=== PATIENT | female | born 1995 | race Caucasian/White ===

== ENCOUNTER → 2018-08-23 15:36 | Outpatient (CLI) | payer BC, SELFPAY ==
[2018-08-23 20:25] LABS: Urine N gonorrhoeae NOT DETECTED
[2018-08-23 20:33] LABS: Urine Chlamydia NOT DETECTED
== END ==
PROVIDERS: PCP Nurse Practitioner Family; Visit Provider Obstetrics & Gynecology
DX: Z34.01 Encounter for supervision of normal first pregnancy, first trimester (principal)
CPT/HCPCS: 87491; 87591

== ENCOUNTER → 2018-09-14 14:59 | Outpatient (CLI) | payer BC, SELFPAY ==
[2018-09-14 17:33] LABS: Free T4, Direct Thyroxine 0.85 ng/dL (0.78-2.19)
[2018-09-14 17:47] LABS: Thyroid Stimulating Hormone 1.93 uIU/mL (0.47-4.68)
[2018-09-20 09:20] LABS: AFP, Serum 34.3 ng/mL; Calc Gestational Age 17.4; Maternal Weight 274 lbs; Mother Ethnic Origin NOT GIVEN; Number of Fetuses NOT GIVEN; Prev Pregnancies Down Syndrome NOT GIVEN
== END ==
PROVIDERS: PCP Nurse Practitioner Family; Visit Provider Obstetrics & Gynecology
DX: E03.9 Hypothyroidism, unspecified (principal); Z3A.17 17 weeks gestation of pregnancy
CPT/HCPCS: 36415; 82105; 84439; 84443; 86787

== ENCOUNTER → 2018-10-11 07:06 | Outpatient (CLI) | payer BC, SELFPAY ==
--- NOTE | 2018-10-11 07:07 | DI.US.S_ITS ---
PROCEDURE: US OB >= 14 WEEKS FETUS INDICATIONS: ANATOMY OUTSIDE/PRIOR DATING DATA: Last menstrual period (LMP): 05/22/18. LMP-based estimated date of delivery (WOODROW): 02/26/19. First dating scan (date and location): 08/23/18. Estimated date of delivery (WOODROW) from first dating scan: 02/21/19. TECHNIQUE: Real-time scanning was performed of the fetus, with image documentation and biometric measurements. Endovaginal scanning: No COMPARISON: [facility], , OB >= 14 WEEKS FETUS, 09/14/2018, 14:50. FINDINGS: General: A single living intrauterine gestation is present. Presentation: Breech. Placenta: Placental position is anterior, without previa. Amniotic fluid index: 18.0 cm, normal range is 5-24 cm. heart rate: 152 beats per minute. Maternal cervical canal: 3.3 cm long. Normal lower limit is 2.5 cm. biometrics: Biparietal diameter: 22 weeks 3 days Head circumference: 22 weeks 3 days Abdominal circumference: 21 weeks 4 days Femur length: 20 weeks Estimated gestational age from initial scan: 21 weeks Composite gestational age from present scan: 21 weeks 4 days Estimated weight and percentile: 398 g; 49th percentile Measurement variability for biometric dating: +/- 7 days from 14 weeks to 15 weeks 6 days gestation, +/- 10 days from 16 weeks to 21 weeks 6 days gestation, +/- 2 weeks from 22 weeks to 27 weeks 6 days gestation, +/- 3 weeks for 28 weeks gestation or later. weight reference: 4500 g or EFW >90/95% is considered macrosomia or large for gestational age. EFW <10% is small for gestational age. EFW 5% or less is considered intra-uterine growth restriction. Anatomic survey: Neuro: Ventricles are non-dilated at less than 10 mm. Cisterna magna is normal at 3-11 mm. Cerebellum is normal in size and morphology. Nuchal skin fold: Normal at less than 6 mm between 14-21 weeks gestational age. Face: Not well visualized. Spine: No evidence for spina bifida. Heart: 4-chambered heart is present, with normal ventricular outflow tracts. Diaphragm: Diaphragm is intact. Stomach: Left-sided stomach is present. Kidneys: No hydronephrosis. Normal is less than 5 mm in 2nd trimester, less than 7 mm in 3rd trimester. Cord: 3-vessel cord has orthotopic insertion. Bladder: Normal in size. Extremities: All 4 extremities identified. IMPRESSION: 1. Single living IUP redemonstrated and interval growth is normal. 2. face not well seen; otherwise normal anatomic survey. Followup recommended.. Dictated by: Deep PEDRAZA Interpreted: Annie Maravilla MD on 10/11/2018 at 11:26 Approved by: Annie Maravilla MD, PhD on 10/11/2018 at 13:11
== END ==
PROVIDERS: PCP Nurse Practitioner Family; Visit Provider Obstetrics & Gynecology
DX: Z34.82 Encounter for supervision of other normal pregnancy, second trimester (principal); Z3A.21 21 weeks gestation of pregnancy
CPT/HCPCS: 76811

== ENCOUNTER → 2018-11-08 14:48 | Outpatient (CLI) | payer BC, SELFPAY ==
[2018-11-08 17:31] LABS: Hematocrit 37.3 % (36-46); Hemoglobin 12.4 g/dL (12.0-16.0)
[2018-11-08 17:43] LABS: GTT (PREG) 1 Hour PP 50gm Dose 82 mg/dL (76-139)
[2018-11-09 09:42] LABS: Free T4, Direct Thyroxine 0.85 ng/dL (0.78-2.19)
== END ==
PROVIDERS: PCP Nurse Practitioner Family; Visit Provider Obstetrics & Gynecology
DX: Z34.02 Encounter for supervision of normal first pregnancy, second trimester (principal); E03.9 Hypothyroidism, unspecified
CPT/HCPCS: 36415; 82950; 84439; 84443; 85014; 85018

== ENCOUNTER 2019-01-03 12:00 | Outpatient (CLI) | payer BC, SELFPAY ==
--- NOTE | 2019-01-03 13:11 | PM.OBTRLD ---
Visit Information Visit Information Date of evaluation: 01/03/19 Primary OB Provider: Domenica Rodriguez On-call OB Provider: Adela West Reason for Evaluation: Yes rupture of membranes Vital Signs Vital Signs: Blood pressure 100/57 pulse of 70 PFSH Social History Smoking Status: Former smoker Social History Smoking Status: Former smoker Evaluation Evaluation Baseline heart rate: 120 Variability: Moderate (11-25) monitor accelerations: Present monitor decelerations: Absent Contraction Frequency (minutes): 0 Category of Tracing: I Non-invasive Membranes Rupture Test: negative Diagnosis, Plan/Disposition Final Diagnosis (1) 33 weeks gestation of : Current Visit: Yes Status: Acute (2) Premature uterine contractions, antepartum: Current Visit: Yes Status: Acute Problem details: Patient concerned she may have had rupture membranes but AmniSure was negative patient was discharged Plan/Disposition Plan: Home keep routine OB appointment OB Disposition: home
== END 2019-01-03 13:21 | disposition home or self-care (01) ==
LOC: LABOR 12:16 → OB 01-09 08:10
PROVIDERS: PCP Nurse Practitioner Family; Visit Provider Obstetrics & Gynecology
DX: O47.00 False labor before 37 completed weeks of gestation, unspecified trimester (principal); Z3A.33 33 weeks gestation of pregnancy
CPT/HCPCS: 59025; 84112; G0378; G0379

== ENCOUNTER → 2019-01-10 15:56 | Outpatient (CLI) | payer BC, SELFPAY ==
--- NOTE | 2019-01-10 17:11 | PM.OBTRLD ---
Visit Information Visit Information Date of evaluation: 01/10/19 Primary OB Provider: Domenica Rodriguez On-call OB Provider: Adela West Reason for Evaluation: Yes rupture of membranes Vital Signs Vital Signs: Blood pressure 119/67, pulse 76 PFSH Social History Smoking Status: Former smoker Social History Smoking Status: Former smoker Evaluation Evaluation Baseline heart rate: 130 Variability: Moderate (11-25) monitor accelerations: Present monitor decelerations: Absent Contraction Frequency (minutes): 0 Category of Tracing: I Non-invasive Membranes Rupture Test: negative Diagnosis, Plan/Disposition Final Diagnosis (1) Premature uterine contractions, antepartum: Current Visit: No Status: Acute Problem details: Patient concerned she may have had rupture membranes but AmniSure was negative patient was discharged (2) 34 weeks gestation of : Current Visit: Yes Status: Acute Plan/Disposition Plan: Patient discharged home to return if she has further concerns keep her routine OB appointment OB Disposition: home
[2019-01-10 17:13] LABS: Thyroid Stimulating Hormone 1.25 uIU/mL (0.47-4.68)
[2019-01-10 19:28] LABS: Free T4, Direct Thyroxine 0.75 ng/dL (0.78-2.19)
== END ==
LOC: LAB 15:57 → LABOR 17:57 → OB 01-11 15:28
PROVIDERS: PCP Nurse Practitioner Family; Visit Provider Obstetrics & Gynecology
DX: O47.00 False labor before 37 completed weeks of gestation, unspecified trimester (principal); Z3A.34 34 weeks gestation of pregnancy
CPT/HCPCS: 36415; 59025; 84112; 84439; 84443; G0378

== ENCOUNTER → 2019-01-24 11:54 | Outpatient (CLI) | payer BC, SELFPAY ==
[2019-01-25 12:55] LABS: Strep Grp B PCR NEG for Grp B Strep
== END ==
PROVIDERS: PCP Nurse Practitioner Family; Visit Provider Obstetrics & Gynecology
DX: Z34.83 Encounter for supervision of other normal pregnancy, third trimester (principal); Z36.85 Encounter for antenatal screening for Streptococcus B
CPT/HCPCS: 87653

== ENCOUNTER 2019-02-14 15:24 | Outpatient (CLI) | payer BC, SELFPAY | END 2019-02-14 17:51 | disposition home or self-care (01) | LOC: LABOR 16:27 → OB 02-15 10:45 | PROVIDERS: PCP Nurse Practitioner Family; Visit Provider Obstetrics & Gynecology | DX: O36.8130 Decreased fetal movements, third trimester, not applicable or unspecified (principal); Z3A.39 39 weeks gestation of pregnancy | CPT/HCPCS: 59025; 59050; G0378; G0379 ==

== ENCOUNTER → 2019-02-16 15:23 | Outpatient (CLI) | payer BC, SELFPAY ==
[2019-02-16 16:42] LABS: Free T4, Direct Thyroxine 0.68 ng/dL (0.78-2.19)
[2019-02-16 16:56] LABS: Thyroid Stimulating Hormone 1.82 uIU/mL (0.47-4.68)
== END ==
PROVIDERS: PCP Nurse Practitioner Family; Visit Provider Obstetrics & Gynecology
DX: E03.9 Hypothyroidism, unspecified (principal)
CPT/HCPCS: 36415; 84439; 84443

== ENCOUNTER 2019-02-19 21:23 | Inpatient (IN) | payer BC, SELFPAY ==
[2019-02-20 00:40] VITALS: TEMP 36.6
[2019-02-20] MEDS: fentaNYL 100 MCG/2 ML INJ IV (00:40)
[2019-02-20 01:33] LABS: Add Manual Diff / Slide Review NO; Basophils Absolute Auto 100 /uL (0-100); Basophils Percent Auto 0.4 % (0-2); Eosinophils Absolute Auto 0 /uL (0-450); Eosinophils Percent Auto 0.3 % (2-4); Hematocrit 40.5 % (36-46); Hemoglobin 13.8 g/dL (12.0-16.0); Lymphocytes Absolute Auto 2600 /uL (1100-4500); Lymphocytes Percent Auto 17.7 % (25-40); Mean Corpuscular HGB Conc 34.1 % (30-36); Mean Corpuscular Hemoglobin 31.2 PG (26-34); Mean Corpuscular Volume 91.4 fL (80-100); Monocytes Absolute Auto 800 /uL (0-900); Monocytes Percent Auto 5.3 % (3-14); Neutrophils Absolute Auto 11300 /uL (1500-7000); Neutrophils Percent Auto 76.3 % (50-75); Platelet Count 259 X10^3/uL (150-400); Red Blood Cell Count 4.43 X10^6/uL (4.0-5.2); Red Cell Distribution Width 13.7 % (11.6-14.8); White Blood Cell Count 14.8 X10^3/uL (4.5-11.0)
[2019-02-20] MEDS: LACTATED RINGERS 1,000 ML 100 ML IV (01:51)
[2019-02-20 01:56] VITALS: TEMP 36.6
--- NOTE | 2019-02-20 05:42 | PM.OBPRVD ---
Delivery date: 02/20/19 Intrapartal events: None Cervical ripening method: none Induction method: none Delivery monitor: external FHT and external uterine Route of delivery: Episiotomy description: None L&D Laceration Description: Vaginal - 2nd Degree and Superficial (right labial) Delivery repair: vicryl and chromic Estimated blood loss (mL): 300 Anesthesia type: Epidural Complications: None Narrative: Patient complete and pushed for 18 minutes. At 4:58 a.m., a live male infant delivered spontaneously over an intact perineum. No nuchal cord. The remainder of the body delivered without difficulty and was placed on mom's abdomen. The cord was double clamped and cut after it stopped pulsing. Cord bloods were obtained. The placenta delivered intact with a 3 vessel cord at 5:03 a.m.. Fundus was massaged to firm. 10 units of Pitocin were placed in the IV fluids. A second-degree vaginal laceration was repaired with 2 0 Vicryl in the usual fashion. A right superficial labial laceration was repaired with 4 0 chromic. Hemostasis was achieved. Estimated blood loss 300 cc. Apgars 8 at 1 minute and 9 at 5 minutes. Epidural analgesia. . Mom and stable to recovery. Plan for aftercare: To routine care
[2019-02-20] MEDS: PRENATAL VIT,CALC/IRON/FOLIC 1 TABLET 1 TAB PO (09:10)
[2019-02-20] MEDS: DOCUSATE 250 MG CAPSULE PO (09:10)
[2019-02-20] MEDS: IBUPROFEN 600 MG TABLET PO ×2 (09:11→18:22)
[2019-02-20] MEDS: CITALOPRAM 10 MG TABLET 30 MG PO (09:21)
[2019-02-20] MEDS: LEVOTHYROXINE 100 MCG TABLET PO (09:21)
--- NOTE | 2019-02-20 18:16 | P.DS_ITS ---
History of Present Illness Date Patient Seen: 02/20/19 Chief complaint: EVALUATION OF LABOR Discharge Providers Date of admission: 02/19/19 21:23 Primary care physician: NILS Mccarty Consults: 02/20/19 07:34 Consult to Ceramic Design Engineer Routine Comment: Discharge provider: Domenica Rodriguez MD Objective Labs Result Diagrams: 02/20/19 01:00 Labs: Laboratory Results - last 24 hr 02/20/19 02/20/19 01:00 01:00 WBC 14.8 H RBC 4.43 Hgb 13.8 Hct 40.5 MCV 91.4 MCH 31.2 MCHC 34.1 RDW 13.7 Plt Count 259 Neut % (Auto) 76.3 H Lymph % (Auto) 17.7 L [place] % (Auto) 5.3 Eos % (Auto) 0.3 L Baso % (Auto) 0.4 Neut # (Auto) 85969 H Lymph # (Auto) 2600 [place] # (Auto) 800 Eos # (Auto) 0 Baso # (Auto) 100 Blood Type B Positive Antibody Screen Negative Discharge Plan Discharge Med Rec/Prescriptions Prescriptions: No Action levothyroxine 100 mcg capsule 100 mcg PO DAILY Qty: 30 RF: 3 citalopram 40 mg tablet 30 mg PO DAILY RF: 0 folic acid 800 mcg tablet 0.4 mg PO DAILY RF: 0 prenat.vits,nadya,irw-bkzk-xyxkm tablet 1 tab PO DAILY RF: 0 Discharge Data Primary Care Provider: Yasmin Shah Attending Provider: Domenica Rodriguez Admit Date/Time: 02/19/19 21:23
--- NOTE | 2019-02-20 18:17 | PM.OBHP.1 ---
OB HPI Date/Time Date of admission: 02/20/19 Date Patient Seen: 02/20/19 Time Patient Seen: 04:00 History of Present Condition Chief complaint: EVALUATION OF LABOR : 1 Para: 0 Estimated Date of Delivery: 02/19/19 Estimated Gestational Age (weeks): 40+1 Narrative: Spring Chandra is a 23 year old female 1 para 0 at 40-,1/7 weeks gestation who presented in active labor History of Present care: good care, initiated at week # (13), number of visits (10) and pounds weight gain (20) Dating criteria: LMP confirmed by 1st trimester US Ultrasounds: normal 1st trimester US and normal mid trimester US Obstetrical complications: none Medical complications: none Preadmission Labs Blood type: B (+) positive -: Antibody screen: negative, GBS status: negative, HBsAG: negative and HIV: negative -: Chlamydia screen: not detected and Gonorrhea screen: not detected -: Rubella: immune and Varicella: immune HCT: 37.3 Urine: Mixed 1 hr GTT: 2 Evaluation Evaluation Baseline heart rate: 135 Variability: Moderate (11-25) monitor accelerations: Present monitor decelerations: Absent Contraction Frequency (minutes): 2 Uterine Contraction Intensity: Strong/Firm Category of Tracing: I Cervical dilation (cm): 10 Cervical effacement (%): 100 station: +1 Laboratory results: Laboratory Tests 02/20/19 02/20/19 01:00 01:00 WBC 14.8 H RBC 4.43 Hgb 13.8 Hct 40.5 MCV 91.4 MCH 31.2 MCHC 34.1 RDW 13.7 Plt Count 259 Neut % (Auto) 76.3 H Lymph % (Auto) 17.7 L [place] % (Auto) 5.3 Eos % (Auto) 0.3 L Baso % (Auto) 0.4 Neut # (Auto) 33373 H Lymph # (Auto) 2600 [place] # (Auto) 800 Eos # (Auto) 0 Baso # (Auto) 100 Blood Type B Positive Antibody Screen Negative Non-invasive Membranes Rupture Test: positive [facility] Medical History (Updated 02/20/19 @ 18:24 by Domenica Rodriguez MD) Hypothyroidism affecting (Acute) Social History Smoking Status: Former smoker Social History Smoking Status: Former smoker Meds Home Medications Medication Instructions Recorded Confirmed Type citalopram 40 mg tablet 30 mg PO DAILY tab 08/23/18 08/23/18 History folic acid 800 mcg tablet 0.4 mg PO DAILY 08/23/18 08/23/18 History 1 tab PO DAILY 08/23/18 08/23/18 History vitamin,calcium,epsfjiih-nghx-znkeh acid tablet levothyroxine 100 mcg capsule 100 mcg PO DAILY #30 cap 01/12/19 Rx Allergies Allergy/AdvReac Type Severity Reaction Status Date / Time No Known Drug Allergies Allergy Verified 08/23/18 15:24 Exam Vital Signs (past 8 hours): Generally: Patient with epidural for pain management but with strong urge to push Objective Labs Result Diagrams: 02/20/19 01:00 Labs: Laboratory Results - last 24 hr 02/20/19 02/20/19 01:00 01:00 WBC 14.8 H RBC 4.43 Hgb 13.8 Hct 40.5 MCV 91.4 MCH 31.2 MCHC 34.1 RDW 13.7 Plt Count 259 Neut % (Auto) 76.3 H Lymph % (Auto) 17.7 L [place] % (Auto) 5.3 Eos % (Auto) 0.3 L Baso % (Auto) 0.4 Neut # (Auto) 43432 H Lymph # (Auto) 2600 [place] # (Auto) 800 Eos # (Auto) 0 Baso # (Auto) 100 Blood Type B Positive Antibody Screen Negative Assessment and Plan Assessment and Plan Assessment and Plan narrative: Assessment: 23-year-old 1 para 0 at 40-,1/7 weeks gestation entering 2nd stage of labor Plan: Expected management to spontaneous vaginal delivery Time Spent with Patient Total time spent with greater than 50% in coordination of care (as documented) at patient's floor/unit and/or counseling patient:: 15-24 minutes
--- NOTE | 2019-02-20 18:20 | P.HPOB_ITS ---
OB HPI Date/Time Date of admission: 02/20/19 Date Patient Seen: 02/20/19 Time Patient Seen: 04:00 History of Present Condition Chief complaint: EVALUATION OF LABOR : 1 Para: 0 Estimated Date of Delivery: 02/19/19 Estimated Gestational Age (weeks): 40+1 Narrative: Spring Chandra is a 23 year old female 1 para 0 at 40-,1/7 weeks gestation who presented in active labor History of Present care: good care, initiated at week # (13), number of visits (10) and pounds weight gain (20) Dating criteria: LMP confirmed by 1st trimester US Ultrasounds: normal 1st trimester US and normal mid trimester US Obstetrical complications: none Medical complications: none Preadmission Labs Blood type: B (+) positive -: Antibody screen: negative, GBS status: negative, HBsAG: negative and HIV: negative -: Chlamydia screen: not detected and Gonorrhea screen: not detected -: Rubella: immune and Varicella: immune HCT: 37.3 Urine: Mixed 1 hr GTT: 2 Evaluation Evaluation Baseline heart rate: 135 Variability: Moderate (11-25) monitor accelerations: Present monitor decelerations: Absent Contraction Frequency (minutes): 2 Uterine Contraction Intensity: Strong/Firm Category of Tracing: I Cervical dilation (cm): 10 Cervical effacement (%): 100 station: +1 Laboratory results: Laboratory Tests 02/20/19 02/20/19 01:00 01:00 WBC 14.8 H RBC 4.43 Hgb 13.8 Hct 40.5 MCV 91.4 MCH 31.2 MCHC 34.1 RDW 13.7 Plt Count 259 Neut % (Auto) 76.3 H Lymph % (Auto) 17.7 L [place] % (Auto) 5.3 Eos % (Auto) 0.3 L Baso % (Auto) 0.4 Neut # (Auto) 79500 H Lymph # (Auto) 2600 [place] # (Auto) 800 Eos # (Auto) 0 Baso # (Auto) 100 Blood Type B Positive Antibody Screen Negative Non-invasive Membranes Rupture Test: positive [facility] Medical History (Updated 02/20/19 @ 18:24 by Domenica Rodriguez MD) Hypothyroidism affecting (Acute) Social History Smoking Status: Former smoker Social History Smoking Status: Former smoker Meds Home Medications Medication Instructions Recorded Confirmed Type citalopram 40 mg tablet 30 mg PO DAILY tab 08/23/18 08/23/18 History folic acid 800 mcg tablet 0.4 mg PO DAILY 08/23/18 08/23/18 History 1 tab PO DAILY 08/23/18 08/23/18 History vitamin,calcium,lajtclsj-dcnd-cerhz acid tablet levothyroxine 100 mcg capsule 100 mcg PO DAILY #30 cap 01/12/19 Rx Allergies Allergy/AdvReac Type Severity Reaction Status Date / Time No Known Drug Allergies Allergy Verified 08/23/18 15:24 Exam Vital Signs (past 8 hours): Generally: Patient with epidural for pain management but with strong urge to push Objective Labs Result Diagrams: 02/20/19 01:00 Labs: Laboratory Results - last 24 hr 02/20/19 02/20/19 01:00 01:00 WBC 14.8 H RBC 4.43 Hgb 13.8 Hct 40.5 MCV 91.4 MCH 31.2 MCHC 34.1 RDW 13.7 Plt Count 259 Neut % (Auto) 76.3 H Lymph % (Auto) 17.7 L [place] % (Auto) 5.3 Eos % (Auto) 0.3 L Baso % (Auto) 0.4 Neut # (Auto) 38005 H Lymph # (Auto) 2600 [place] # (Auto) 800 Eos # (Auto) 0 Baso # (Auto) 100 Blood Type B Positive Antibody Screen Negative Assessment and Plan Assessment and Plan Assessment and Plan narrative: Assessment: 23-year-old 1 para 0 at 40-,1/7 weeks gestation entering 2nd stage of labor Plan: Expected management to spontaneous vaginal delivery Time Spent with Patient Total time spent with greater than 50% in coordination of care (as documented) at patient's floor/unit and/or counseling patient:: 15-24 minutes
[2019-02-21] MEDS: IBUPROFEN 600 MG TABLET PO (05:52)
[2019-02-21 06:50] LABS: Hematocrit 29.4 % (36-46); Hemoglobin 9.9 g/dL (12.0-16.0)
[2019-02-21] MEDS: LEVOTHYROXINE 100 MCG TABLET PO (07:29)
[2019-02-21] MEDS: PRENATAL VIT,CALC/IRON/FOLIC 1 TABLET 1 TAB PO (07:29)
[2019-02-21] MEDS: CITALOPRAM 10 MG TABLET 30 MG PO (07:30)
[2019-02-21 08:32] VITALS: BP 119/61; PULSE 85; RESP 16; TEMP 36.6
--- NOTE | 2019-02-21 17:36 | PM.OBDS.1 ---
Discharge Providers Date of admission: 02/19/19 21:23 Discharge Date: 02/21/19 Primary care physician: NILS Mccarty Consults: 02/20/19 07:34 Consult to Clip On Sunglasses Inspector Routine Comment: Discharge provider: Domenica Rodriguez MD Summary Date Patient Seen: 02/21/19 Time Patient Seen: 07:40 Procedures: Spontaneous vaginal delivery Epidural analgesia Second-degree laceration repair Hospital Course: Patient is a 23-year-old 1 para 1 at 40 and 1 7 th weeks gestation who presented in active labor. She had a spontaneous rupture membranes. She received an epidural for pain management. She progressed to complete dilation and had a spontaneous vaginal delivery. She had a second-degree vaginal laceration which was repaired Her course was unremarkable. Peripartum Data Delivery Method: Natural Vaginal Laceration description: Vaginal - 2nd Degree Episiotomy description: None Procedures: Spontaneous vaginal delivery Epidural analgesia Second-degree laceration repair complications: none Status at Discharge Cognitive/behavioral status at discharge: oriented Functional status at discharge: independent ambulation Overall status at discharge: patient is progressing back to baseline Time Spent with Patient Total time spent providing and/or coordinating discharge services: Less than 30 minutes Objective Labs Result Diagrams: 02/21/19 06:32 Labs: Laboratory Results - last 24 hr 02/21/19 06:32 Hgb 9.9 L Hct 29.4 L Exam Vital Signs (past 8 hours): Generally: Patient is sitting in chair, holding , no acute distress Fundus: Firm at U -2 Extremities: Negative Homans, 1+ edema Discharge Plan Discharge Plan Patient Disposition: Home Discharge comment: Call with fever, chills, bleeding vaginally more than a pad in an hour Discharge Med Rec/Prescriptions Prescriptions: Continued levothyroxine 100 mcg capsule 100 mcg PO DAILY Qty: 30 RF: 3 citalopram 40 mg tablet 30 mg PO DAILY RF: 0 folic acid 800 mcg tablet 0.4 mg PO DAILY RF: 0 prenat.vits,nadya,ysz-bhac-etxqv tablet 1 tab PO DAILY RF: 0 Follow up/Referrals: Domenica Rodriguez MD [Physician] - 6 Weeks (please follow up w/ Dr. Rodriguez on @ 11am with a 1040 check in) Provider Discharge Instructions Diet: Regular Skin/Wound/Dressing Care Report to your healthcare provider any signs of infection, such as:: chills, fever, increased pain and unusual drainage Visit Report/Discharge Packet Instructions: DI for Labor and Delivery, Vaginal Discharge Data Primary Care Provider: Yasmin Shah Attending Provider: Domenica Rodriguez Admit Date/Time: 02/19/19 21:23 Discharges patient from system. Discharge Date/Time: 02/21/19 10:35
== END 2019-02-21 10:35 | disposition home or self-care (01) | DRG 807 ==
PROVIDERS: Admitting Provider Obstetrics & Gynecology; PCP Nurse Practitioner Family; Visit Provider Obstetrics & Gynecology
DX: O70.1 Second degree perineal laceration during delivery (principal); Z37.0 Single live birth; Z3A.40 40 weeks gestation of pregnancy
CPT/HCPCS: 01967; 36415; 59025; 59050; 59400; 84112; 85014; 85018; 85025; 86850; 86900; 86901; G0379; J3010

== ENCOUNTER → 2019-04-03 11:30 | Outpatient (CLI) | payer BC, SELFPAY ==
[2019-04-03 13:02] LABS: Free T4, Direct Thyroxine 1.13 ng/dL (0.78-2.19)
[2019-04-03 13:16] LABS: Thyroid Stimulating Hormone 0.36 uIU/mL (0.47-4.68)
== END ==
PROVIDERS: Visit Provider Obstetrics & Gynecology
DX: E03.9 Hypothyroidism, unspecified (principal)
CPT/HCPCS: 36415; 84439; 84443

== ENCOUNTER → 2022-07-27 13:23 | Outpatient (CLI) | payer OTHER, MEDICAID, SELFPAY ==
[2022-07-27 14:11] LABS: Add Manual Diff / Slide Review NO; Basophils Absolute Auto 0 /uL (0-100); Basophils Percent Auto 0.6 % (0-2); Eosinophils Absolute Auto 0 /uL (0-450); Eosinophils Percent Auto 0.7 % (2-4); Hematocrit 37.6 % (36-46); Hemoglobin 12.7 g/dL (12.0-16.0); Lymphocytes Absolute Auto 1700 /uL (1100-4500); Lymphocytes Percent Auto 29.3 % (25-40); Mean Corpuscular HGB Conc 33.9 % (30-36); Mean Corpuscular Hemoglobin 30.6 PG (26-34); Mean Corpuscular Volume 90.3 fL (80-100); Monocytes Absolute Auto 400 /uL (0-900); Monocytes Percent Auto 6.9 % (3-14); Neutrophils Absolute Auto 3600 /uL (1500-7000); Neutrophils Percent Auto 62.5 % (50-75); Platelet Count 256 X10^3/uL (150-400); Red Blood Cell Count 4.17 X10^6/uL (4.0-5.2); Red Cell Distribution Width 12.2 % (11.6-14.8); White Blood Cell Count 5.7 X10^3/uL (4.5-11.0)
[2022-07-27 14:51] LABS: Appearance Urine UA SL CLOUDY; Bilirubin Urine UA NEGATIVE (NEGATIVE); Color Urine UA YELLOW; Glucose Urine UA NEGATIVE (Negative); Ketones Urine UA NEGATIVE (NEGATIVE); Leukocyte Esterase Urine UA TRACE (NEGATIVE); Nitrite Urine UA NEGATIVE (Negative); Occult Blood Urine UA NEGATIVE (Negative); Protein Urine UA TRACE (Negative); Specific Gravity Urine UA >=1.030 (1.000-1.035); Urobilinogen Urine UA 0.2 E.U./dL (0.2)
[2022-07-27 14:58] LABS: Amorphous Sediment Urine 1+; Bacteria Urine None Seen; Mucus Urine 2+ (Negative); RBC Urine None Seen (0-5/HPF); Squamous Epithelial Cell Urine 1-5 /HPF (0-5/HPF); WBC Urine 0-1/HPF (0-5/HPF); pH Urine UA 5.5 (4.5-8.0)
[2022-07-27 15:19] LABS: Free T3, Triiodothyronine Free 2.77 pg/mL (2.77-5.27); Free T4, Direct Thyroxine 1.11 ng/dL (0.78-2.19)
[2022-07-27 15:32] LABS: Thyroid Stimulating Hormone 3.15 uIU/mL (0.47-4.68)
[2022-07-28 05:24] LABS: RPR Screen Non Reactive (Non Reactive)
[2022-07-28 07:39] LABS: Varicella IgG Antibody 1720 index (Immune >165)
[2022-07-29 18:36] LABS: HIV 1 & 2 Ab/Ag 4th Gen Combo NEGATIVE (NEGATIVE); Hepatitis B Surface Antigen NEGATIVE s/c (NEGATIVE)
[2022-07-29 18:46] LABS: Hep C Virus Ab w/Reflex Quant NEGATIVE s/c (NEGATIVE)
--- NOTE | 2022-08-06 21:54 | PM.CALLCOV.1 ---
Call Coverage Note Note Date of Patient Contact: 08/06/22 Time of Patient Contact: 21:54 Narrative of Care Provided: Spring paged to report bright red bleeding after intercourse. Went to the bathroom, toilet paper with blood but not enough blood to put on a pad. Checked again about 15 min later and is having less bleeding now, none on underwear but some on TP. She's 11 weeks; saw Dr. Rodriguez a couple of weeks ago and had her ultrasound. Stomach upset that reminds her of menstrual cramps that are slowly dissipating. First trimester vaginal bleeding after intercourse Plan: Watch and wait. Reviewed warning signs and when to page back with concerns. Reviewed that bleeding after sex is common and color should darken and decrease over the weekend.
== END ==
PROVIDERS: Referring Provider Obstetrics & Gynecology; Visit Provider Obstetrics & Gynecology
DX: O99.280 Endocrine, nutritional and metabolic diseases complicating pregnancy, unspecified trimester (principal); E03.9 Hypothyroidism, unspecified
CPT/HCPCS: 36415; 80055; 81003; 81015; 84439; 84443; 84481; 86787; 86803; 86850; 86900; 86901; 87086; 87389

== ENCOUNTER → 2022-09-20 16:42 | Outpatient (CLI) | payer OTHER, MEDICAID, SELFPAY ==
[2022-09-20 19:38] LABS: Free T4, Direct Thyroxine 1.04 ng/dL (0.78-2.19)
[2022-09-22 20:07] LABS: AFP Value 48.4 ng/mL (.); Gest Age on Col Date 17.9 weeks (.); Insulin Dep Diabetes No (.); OSBR Risk 1IN 2734 (.); Results Report (.); Test Results *Screen Negative* (.)
== END ==
PROVIDERS: Referring Provider Obstetrics & Gynecology; Visit Provider Obstetrics & Gynecology
DX: O99.280 Endocrine, nutritional and metabolic diseases complicating pregnancy, unspecified trimester (principal); E03.9 Hypothyroidism, unspecified; Z3A.17 17 weeks gestation of pregnancy
CPT/HCPCS: 36415; 82105; 84439; 84443

== ENCOUNTER → 2022-10-08 15:11 | Outpatient (CLI) | payer OTHER, MEDICAID, SELFPAY ==
--- NOTE | 2022-10-08 15:13 | DI.US.S_ITS ---
PROCEDURE: US OB >= 14 WEEKS FETUS INDICATIONS: ANATOMY OUTSIDE/PRIOR DATING DATA: Last menstrual period (LMP): 05/18/2022. LMP-based estimated date of delivery ([facility]): 02/22/2023. First dating scan (date and location): 07/27/2022. Estimated date of delivery (WOODROW) from first dating scan: 02/20/2023 Working WOODROW is 02/22/2023. TECHNIQUE: Real-time scanning was performed of the fetus, with image documentation and biometric measurements. COMPARISON: [facility], , OB <= 14 WEEKS FETUS, 08/23/2022, 16:22. [facility], , OB >= 14 WEEKS FETUS, 07/27/2022, 13:18. FINDINGS: General: A single living intrauterine gestation is present. Presentation: Variable. Placenta: Placental position is anterior, without previa. Amniotic fluid index: 15.5 cm, normal range is 5-24 cm. Single deepest vertical pocket is 4.5 cm. heart rate: 150 beats per minute. Maternal cervical canal: 5.7 cm long. Normal lower limit is 2.5 cm. biometrics: Biparietal diameter: 21 weeks 1 day Head circumference: 20 weeks 3 days Abdominal circumference: 22 weeks 2 days Femur length: 20 weeks 1 day Clinically estimated gestational age: 20 weeks 3 days Composite gestational age from present scan: 21 weeks Estimated weight and percentile: 411 g; 87th percentile Anatomic survey: Neuro: Left ventricle upper limits of normal at 10 mm. Ventricles are non-dilated at less than 10 mm. Cisterna magna is normal at 3-11 mm. Cerebellum is normal in size and morphology. Nuchal skin fold: Normal at less than 6 mm between 14-21 weeks gestational age. Face: Nose and lips, facial profile are normal. Spine: No evidence for spina bifida. Heart: 4-chambered heart is present, with normal ventricular outflow tracts. Diaphragm: Diaphragm is intact. Stomach: Left-sided stomach is present. Kidneys: No hydronephrosis. Normal is less than 5 mm in 2nd trimester, less than 7 mm in 3rd trimester. Cord: 3-vessel cord has orthotopic insertion. Bladder: Normal in size. Extremities: All 4 extremities identified. IMPRESSION: 1. Single living IUP redemonstrated and interval growth is upper limits of normal. 2. Left ventricle upper limits of normal at 10 mm; otherwise normal anatomic survey. Short-term follow-up ultrasound recommended. We strive to produce accurate, complete, and clear reports of imaging services. To assist us in improving patient care, this report was composed using standard report templates and voice recognition software. Therefore, it may contain abnormal punctuation, insertions and/or omissions. Occasional wrong-word or sound-alike substitutions may occur. Though we review the report and make efforts to correct it, we do recommend that the report be read carefully in proper context to recognize any text inaccuracies. Dictated by: Deep OROURKE Interpreted: Raulito Guillen MD on 10/08/2022 at 16:38 Transcribed by: BHAVIN on 10/08/2022 at 16:41 Approved by: Raulito Guillen M.D. on 10/08/2022 at 17:36
== END ==
PROVIDERS: Referring Provider Obstetrics & Gynecology; Visit Provider Obstetrics & Gynecology
DX: Z34.82 Encounter for supervision of other normal pregnancy, second trimester (principal); Z3A.21 21 weeks gestation of pregnancy
CPT/HCPCS: 76811

== ENCOUNTER → 2022-10-18 14:30 | Outpatient (CLI) | payer OTHER, MEDICAID, SELFPAY | PROVIDERS: Visit Provider Obstetrics & Gynecology | DX: R35.89 Other polyuria (principal); Z34.82 Encounter for supervision of other normal pregnancy, second trimester | CPT/HCPCS: 87086 ==

== ENCOUNTER → 2022-11-15 08:56 | Outpatient (CLI) | payer OTHER, MEDICAID, SELFPAY ==
--- NOTE | 2022-11-15 08:57 | DI.US.S_ITS ---
PROCEDURE: US OB FOLLOW UP INDICATIONS: FOLLOW UP DILATED LATERAL VENTRICLE OUTSIDE/PRIOR DATING DATA: Last menstrual period (LMP): 05/18/2022. LMP-based estimated date of delivery (WOODROW): 02/22/2023. First dating scan (date and location): 07/27/2022. Estimated date of delivery (WOODROW) from first dating scan: 02/20/2023. The calculations are made using the clinical WOODROW of 02/22/2023. TECHNIQUE: Real-time scanning was performed of the fetus, with image documentation and biometric measurements. COMPARISON: [facility], , OB >= 14 WEEKS FETUS, 10/08/2022, 15:25. FINDINGS: General: A single living intrauterine gestation is present. Presentation: Vertex. Placenta: Placental position is anterior , without previa. Amniotic fluid index: 20.5 cm, normal range is 5-24 cm. Single deepest vertical pocket is 5.7 cm. heart rate: 182 beats per minute. Maternal cervical canal: 4.9 cm long. Normal lower limit is 2.5 cm. biometrics: Clinically estimated gestational age: 25 weeks 6 days Other: Ventricles are within normal limits. IMPRESSION: Single live intrauterine with ultrasound gestational age of 25 weeks 6 days. Ventricles are within normal limits. We strive to produce accurate, complete, and clear reports of imaging services. To assist us in improving patient care, this report was composed using standard report templates and voice recognition software. Therefore, it may contain abnormal punctuation, insertions and/or omissions. Occasional wrong-word or sound-alike substitutions may occur. Though we review the report and make efforts to correct it, we do recommend that the report be read carefully in proper context to recognize any text inaccuracies. Dictated by: Susanna Rivera M.D. on 11/15/2022 at 16:34 Approved by: Susanna Rivera M.D. on 11/15/2022 at 16:36
== END ==
PROVIDERS: Referring Provider Obstetrics & Gynecology; Visit Provider Obstetrics & Gynecology
DX: Z36.2 Encounter for other antenatal screening follow-up (principal); Z3A.25 25 weeks gestation of pregnancy
CPT/HCPCS: 76816; 76817

== ENCOUNTER → 2022-11-17 08:56 | Outpatient (CLI) | payer OTHER, MEDICAID, SELFPAY ==
[2022-11-17 10:44] LABS: Hemoglobin 11.9 g/dL (12.0-16.0)
[2022-11-17 11:07] LABS: GTT (PREG) 1 Hour PP 50gm Dose 74 mg/dL (76-139)
[2022-11-17 11:22] LABS: Free T4, Direct Thyroxine 0.78 ng/dL (0.78-2.19)
[2022-11-17 11:35] LABS: Thyroid Stimulating Hormone 2.37 uIU/mL (0.47-4.68)
== END ==
PROVIDERS: Physician Assistant Medical; Referring Provider Obstetrics & Gynecology; Visit Provider Obstetrics & Gynecology
DX: O99.280 Endocrine, nutritional and metabolic diseases complicating pregnancy, unspecified trimester (principal); E03.9 Hypothyroidism, unspecified; Z3A.26 26 weeks gestation of pregnancy
CPT/HCPCS: 36415; 82950; 84439; 84443; 85014; 85018

== ENCOUNTER → 2022-12-27 11:07 | Outpatient (CLI) | payer OTHER, MEDICAID, SELFPAY | PROVIDERS: Visit Provider Physician Assistant Medical | DX: R35.0 Frequency of micturition (principal) | CPT/HCPCS: 87086 ==

== ENCOUNTER → 2023-01-10 16:14 | Outpatient (CLI) | payer OTHER, MEDICAID, SELFPAY ==
[2023-01-10 18:09] LABS: Alanine Aminotransferase 20 IU/L (<35); Albumin 3.3 g/dL (3.5-5.0); Alkaline Phosphatase 108 U/L (38-126); Aspartate Aminotransferase 23 IU/L (14-36); Bilirubin Total 0.4 mg/dL (0.2-1.3); Bilirubin Unconjugated 0.1 mg/dL (0.0-1.1); Globulin 3.4 g/dL (1.7-4.1); HEMOLYSIS 47 (0-50); Total Protein 6.7 g/dL (6.3-8.2)
[2023-01-12 11:16] LABS: Bile Acids 3.4 umol/L (0.0-10.0)
== END ==
PROVIDERS: Referring Provider Obstetrics & Gynecology; Visit Provider Obstetrics & Gynecology
DX: E03.9 Hypothyroidism, unspecified (principal); O99.210 Obesity complicating pregnancy, unspecified trimester; L29.9 Pruritus, unspecified; O99.280 Endocrine, nutritional and metabolic diseases complicating pregnancy, unspecified trimester; Z3A.33 33 weeks gestation of pregnancy
CPT/HCPCS: 36415; 80076; 82239

== ENCOUNTER → 2023-02-03 15:23 | Outpatient (CLI) | payer OTHER, MEDICAID, SELFPAY ==
[2023-02-04 20:38] LABS: Strep Grp B PCR POS for Grp B Strep
== END ==
PROVIDERS: Visit Provider Obstetrics & Gynecology
DX: Z34.83 Encounter for supervision of other normal pregnancy, third trimester (principal); Z3A.37 37 weeks gestation of pregnancy
CPT/HCPCS: 87653

== ENCOUNTER 2023-02-14 18:38 | Observation (INO) | payer OTHER, MEDICAID, SELFPAY | END 2023-02-14 21:15 | disposition home or self-care (01) | LOC: LABOR 18:41 | PROVIDERS: Admitting Provider Obstetrics & Gynecology; Referring Provider Obstetrics & Gynecology; Visit Provider Obstetrics & Gynecology | DX: O47.1 False labor at or after 37 completed weeks of gestation (principal); Z3A.38 38 weeks gestation of pregnancy | CPT/HCPCS: 59025; 59050; G0378; G0379 ==

== ENCOUNTER → 2023-02-18 11:53 | Outpatient (CLI) | payer OTHER, MEDICAID, SELFPAY ==
[2023-02-19 14:21] LABS: Candida species Positive (Negative); Gardnerella vaginalis Positive (Negative); Trichomoas vaginalis Negative (Negative)
== END ==
PROVIDERS: Visit Provider Obstetrics & Gynecology
DX: Z34.80 Encounter for supervision of other normal pregnancy, unspecified trimester (principal); N89.8 Other specified noninflammatory disorders of vagina
CPT/HCPCS: 87480; 87510; 87660

== ENCOUNTER 2023-02-22 15:03 | Outpatient (CLI) | payer OTHER, MEDICAID, SELFPAY | END 2023-02-22 16:19 | disposition home or self-care (01) | LOC: LABOR 15:42 → OB 02-24 15:04 | PROVIDERS: Referring Provider Obstetrics & Gynecology; Visit Provider Obstetrics & Gynecology | DX: O48.0 Post-term pregnancy (principal); Z3A.40 40 weeks gestation of pregnancy | CPT/HCPCS: 59025; G0378; G0379 ==

== ENCOUNTER 2023-02-24 04:17 | Inpatient (IN) | payer OTHER, MEDICAID, SELFPAY ==
[2023-02-24] MEDS: LACTATED RINGERS 1,000 ML 999 ML IV (04:53)
[2023-02-24 04:59] LABS: Add Manual Diff / Slide Review NO; Basophils Absolute Auto 100 /uL (0-100); Eosinophils Absolute Auto 0 /uL (0-450); Eosinophils Percent Auto 0.3 % (2-4); Hemoglobin 13.6 g/dL (12.0-16.0); Lymphocytes Absolute Auto 3200 /uL (1100-4500); Lymphocytes Percent Auto 31.6 % (25-40); Mean Corpuscular HGB Conc 34.7 % (30-36); Mean Corpuscular Hemoglobin 31.6 PG (26-34); Monocytes Absolute Auto 700 /uL (0-900); Monocytes Percent Auto 6.4 % (3-14); Neutrophils Absolute Auto 6200 /uL (1500-7000); Neutrophils Percent Auto 60.7 % (50-75); Platelet Count 232 X10^3/uL (150-400); Red Blood Cell Count 4.29 X10^6/uL (4.0-5.2); Red Cell Distribution Width 13.4 % (11.6-14.8); White Blood Cell Count 10.1 X10^3/uL (4.5-11.0)
[2023-02-24] MEDS: AMPICILLIN 2,000 MG in SODIUM CHLORIDE 0.9% 100 ML 200 MG IV (05:15)
--- NOTE | 2023-02-24 06:36 | PM.AN.REGBLK ---
Regional Block Pre-procedure PMH/ROS narrative: Hypothyroid BMI 49.5 PSH/Anesthesia history narrative: Epidural ASA Class: II Labs: Hct 39.0 % (36-46) 02/24/23 04:45 Plt Count 232 X10^3/uL (150-400) 02/24/23 04:45 Medications: Current Medications Generic Name Dose Route Start Last Admin Trade Name Freq PRN Reason Stop Dose Admin Calcium Carbonate 1,000 mg 02/24/23 04:37 Calcium Carbonate 500 Mg Tab PO Q4HR PRN Dyspepsia Carboprost Tromethamine 250 mcg 02/24/23 04:37 Carboprost 250 Mcg/Ml Ampul IM Q90M PRN Bleeding Fentanyl 50 mcg 02/24/23 04:37 Fentanyl 100 Mcg/2 Ml Inj IV Q1H PRN Pain, Moderate (4-6) Oxytocin/Lactated Ringer's 30 unit in 500 mls @ 2 mls/hr 02/24/23 04:45 Oxytocin Premix IV TITRATE BERNARD Protocol 2 MILLIUNIT/MIN Oxytocin/Lactated Ringer's 30 unit in 500 mls @ 200 mls/hr 02/24/23 04:37 Oxytocin Premix IV CONT PRN Bleeding Protocol Lactated Ringer's 1,000 mls @ 100 mls/hr 02/24/23 04:45 02/24/23 04:53 Lactated Ringers IV 999 mls/hr CONT BERNARD Administration Tranexamic Acid 1,000 mg/ 100 mls @ 200 mls/hr 02/24/23 04:37 Sodium Chloride IV NOW PRN Bleeding Ampicillin Sodium 1,000 mg/ 100 mls @ 200 mls/hr 02/24/23 09:00 Sodium Chloride IV Q4H BERNARD Lidocaine HCl 20 ml 02/24/23 04:37 Lidocaine 1% 20 Ml INJ INTRA-OP PRN Post Delivery Methylergonovine Maleate 0.2 mg 02/24/23 04:37 Methylergonovine 0.2 Mg/Ml Vial IM NOW PRN Bleeding Methylergonovine Maleate 0.2 mg 02/24/23 04:37 Methylergonovine 0.2 Mg Tablet PO Q6HR PRN Heavy Bleeding Misoprostol 400 mcg 02/24/23 04:37 Misoprostol 200 Mcg Tablet SL NOW PRN Bleeding Misoprostol 800 mcg 02/24/23 04:37 Misoprostol 200 Mcg Tablet [place] NOW PRN Bleeding Naloxone HCl 0.2 mg 02/24/23 04:37 Naloxone 0.4 Mg/Ml Vial IV Q2MIN PRN Opiate Reversal Ondansetron HCl 4 mg 02/24/23 04:37 Ondansetron 4 Mg/2 Ml Inj IV Q4HR PRN Nausea And Vomiting Oxytocin 10 unit 02/24/23 04:37 Oxytocin 10 Unit/Ml Vial IM NOW PRN Bleeding Allergies: Allergies Allergy/AdvReac Type Severity Reaction Status Date / Time No Known Drug Allergies Allergy Verified 02/22/23 14:00 Procedure Insertion date: 02/24/23 Insertion time: 06:00 Prep/Local: betadine x3 and 1% lidocaine Interspace: L3-4 Patient position: sitting Needle: 18 gauge Willie Loss of resistance with: air REY at (cm): 10 Catheter placed at SKIN (cm): 15 Catheter in SPACE (cm): 5 Initial Medications TEST DOSE time: 06:02 BOLUS DOSE time: 06:06 BOLUS DOSE (mL): 10 BOLUS DOSE med: 0.25% bupivacaine Infusion INFUSION: 0.125% bupivacaine and with fentanyl 2 mcg/mL Initial rate (mL/hr): 12 Subsequent interventions: Delivered at 0700. Epidural withdrawn by RN Post-procedure Post-procedure Anesthesia Assessment: Yes CV function: HR/BP stable, Yes Resp function: RR/sat/airway adequate, Yes Post-op hydration adequate, Yes Pain control adequate, Yes Nausea & vomiting absent, Yes Temperature > 36 C and Yes Mental status appropriate
--- NOTE | 2023-02-24 06:51 | PM.OBHP.IH.1 ---
OB HPI Date/Time Date of admission: 02/24/23 Date Patient Seen: 02/24/23 Time Patient Seen: 06:51 History of Present Condition Chief complaint: Labor WOODROW Calculator Estimated Delivery Date Method Current WG Current Estimate 02/22/23 LMP (Certain) 40w 2d Other Estimates 02/20/23 Ultrasound #1 40w 4d Estimated Gestational Age (weeks): 40+2 : 2 Para: 1 care: good care, initiated at week # (10), number of visits (2) and pounds weight gain (35) Dating criteria OB: LMP confirmed by 1st trimester US Ultrasounds: normal 1st trimester US and normal mid trimester US Obstetrical complications: none Medical complications OB: other (Hypothyroid) Preadmission Labs Last OB Lab Results: Blood Type B Positive 02/24/23 04:45 Antibody Screen Negative 02/24/23 04:45 Hematocrit 39.0 % (36-46) 02/24/23 04:45 Hemoglobin 13.6 g/dL (12.0-16.0) 02/24/23 04:45 Hepatitis B Surface Antigen Negative s/c (NEGATIVE) 07/27/22 13:47 Hepatitis C Antibody Negative s/c (NEGATIVE) 07/27/22 13:47 Rubella Antibody 252.0 IU/mL (>15) 07/27/22 13:47 Varicella-Zoster IgG Antibody 1720 index (Immune >165) 07/27/22 13:47 Glucose 1 Hour 74 mg/dL (76-139) L 11/17/22 10:12 Group B Streptococcus (PCR) Pos for grp b strep H 02/03/23 15:23 -: Chlamydia screen: negative, Gonorrhea screen: negative and Urine: negative -: PAP smear: Normal Genetic Screens: Cell-free DNA: Normal (normal female) and Alpha-fetoprotein: Normal External Labs -: Urine: negative Prior (ies) Past Pregnancies Del. Date GA/Weeks Labor Lgth Wt Sex Route Outcome Anesthesia Place Delv Breastfeed Preg Comp Name 02/20/19 40 8 6 lb 13 oz Male vaginal epidural IH 3 months none [place] Evaluation Evaluation Baseline heart rate: 135 Variability: Moderate (11-25) monitor accelerations: Present Monitor Decelerations: Absent Contraction Frequency (minutes): 3 Uterine Contraction Intensity: Strong/Firm Status: Category l Dilation (cm): 8 Effacement (%): 100 station: 0 Position of cervix: anterior Consistency: soft PFSH Medical History (Updated 02/03/23 @ 14:54 by Domenica Rodriguez MD) Anxiety Depression Hypothyroidism affecting Surgical History (Updated 06/23/22 @ 08:33 by Amy Aggarwal, RN) [place] teeth extracted Family History (Updated 06/23/22 @ 08:35 by Amy Aggarwal, RN) Father Hyperlipidemia Hypertension Mother Hypothyroidism Sister Ulcerative colitis Grandfather Diabetes mellitus Social History marital status: unmarried,living together number of children: 1 household members: significant other, children and other lives independently: Yes caregiver/support person: Yes housing: house pets and animals: Yes (puppy, 2 cats, chickens, goats) education level: high school occupational status: unemployed current occupational exposures/hazards: No special joe needs: No travel history: recent seatbelt use: always water heater temp set < 120 deg: Yes working smoke detector in home: Yes fire extinguisher in home: Yes carbon monox detector in home: Yes firearms in home: No do you feel safe at home: Yes Smoking Status: Former smoker Tobacco: How many years used: 1 second hand exposure: Yes (s/o smokes but not around pt) alcohol intake: former substance use type: marijuana and crack/cocaine during the past year weight has: decreased > 10 lbs daily servings fruits/ve-4 caffeine: Yes (1 coffee/day) Type(s) of exercise: none Meds Home Medications and Allergies Home Medications Medication Instructions Recorded Confirmed Type prenat.vits,nadya,nnt-cjqv-wwtan 1 tab PO DAILY 08/23/18 02/22/23 History sertraline 25 mg tablet 75 mg PO DAILY #90 tabs 08/17/22 02/22/23 Rx levothyroxine 112 mcg tablet 112 mcg PO DAILY #90 tabs 10/14/22 02/22/23 Rx metronidazole 0.75 % (37.5 mg/5 1 appful vaginal DAILY 7 days #70 02/21/23 02/22/23 Rx gram) vaginal gel grams Allergies Allergy/AdvReac Type Severity Reaction Status Date / Time No Known Drug Allergies Allergy Verified 02/22/23 14:00 OB Exam Narrative Exam Narrative: Generally: Patient is slightly uncomfortable with contractions even with epidural Fundal height: 42 cm Estimated weight 7-1/2 lb Extremities: Trace edema Objective Labs 02/24/23 04:45 Labs: Laboratory Results - last 24 hr 02/24/23 02/24/23 04:45 04:45 WBC 10.1 RBC 4.29 Hgb 13.6 Hct 39.0 MCV 91.0 MCH 31.6 MCHC 34.7 RDW 13.4 Plt Count 232 Neut % (Auto) 60.7 Lymph % (Auto) 31.6 [place] % (Auto) 6.4 Eos % (Auto) 0.3 L Baso % (Auto) 1.0 Neut # (Auto) 6200 Lymph # (Auto) 3200 [place] # (Auto) 700 Eos # (Auto) 0 Baso # (Auto) 100 Blood Type B Positive Antibody Screen Negative Assessment and Plan Assessment and Plan Assessment and Plan narrative: Assessment: 27-year-old 2 para 1 at 40-,2/7 weeks gestation in active labor Group B strep bacteriuria Plan: Received 1 dose of antibiotics Expected management to spontaneous vaginal delivery Time Spent with Patient Total time spent with greater than 50% in coordination of care (as documented) at patient's floor/unit and/or counseling patient:: 25 - 35 minutes
--- NOTE | 2023-02-24 07:24 | PM.OBPRVD ---
Labor & Delivery Delivery date: 02/24/23 Cervical ripening method: none Induction method: none Delivery monitor: external FHT and external uterine Route of delivery: Episiotomy description: None L&D Laceration Description: None Quantitative Blood Loss: 75 Anesthesia Type: Epidural Complications: None Narrative: Patient complete and pushed with 1 contraction. At 7:00 a.m., a live female delivered spontaneously in the SHERLEY presentation, over an intact perineum. The remainder of the body delivered without difficulty and was placed on mom's abdomen. The cord was double clamped and cut after the cord stopped pulsing. Cord bloods were obtained. Pitocin was given in the IV fluids. The placenta delivered intact with a three-vessel cord at 7:09 a.m.. Fundus was massaged to firm. The perineum was inspected and there were no lacerations. Epidural analgesia. Apgars 8 at 1 minute and 9 at 5 minutes. Mom and stable to recovery. Weight: 8# 0.2 oz. Baby 1: Infant gender: Female Presentation: vertex Position: Right Occiput Anterior Placenta delivery description: Spontaneous Cord Vessel Description: 3 Vessels and Clamped/Cut (after cord stopped pulsing) score (1 min): 8 score (5 min): 9 weight: 8 lb 0.2 oz Plan for aftercare: Routine care
[2023-02-24] MEDS: IBUPROFEN 600 MG TABLET PO ×2 (14:05→19:59)
[2023-02-24] MEDS: DERMOPLAST SPRAY 20% 60 ML 1 SPRAY TOP (14:05)
[2023-02-24] MEDS: ACETAMINOPHEN 325 MG TABLET 650 MG PO ×2 (14:05→19:59)
[2023-02-25] MEDS: ACETAMINOPHEN 325 MG TABLET 650 MG PO (04:26)
[2023-02-25] MEDS: IBUPROFEN 600 MG TABLET PO (04:26)
[2023-02-25 06:36] LABS: Hematocrit 34.2 % (36-46); Hemoglobin 11.9 g/dL (12.0-16.0)
[2023-02-25] MEDS: LEVOTHYROXINE 112 MCG TABLET PO (07:36)
[2023-02-25] MEDS: SERTRALINE 50 MG TABLET 75 MG PO (08:08)
[2023-02-25] MEDS: DOCUSATE 100 MG CAPSULE PO (08:09)
[2023-02-25] MEDS: PRENATAL VIT,CALC/IRON/FOLIC 1 TABLET 1 TAB PO (08:10)
[2023-02-25 11:21] VITALS: BP 102/51; PULSE 66; RESP 16; TEMP 36.2
--- NOTE | 2023-03-06 16:43 | P.DS_ITS ---
Discharge Providers Provider Date of admission: 02/24/23 04:17 Discharge Date: 02/25/23 Consults: 02/24/23 04:37 Consult to Anesthesiology Urgent Comment: Consulting Provider: Anesthesiologist Reason for consultation: Epidural Has provider been notified: No 02/25/23 07:21 Consult to Supply Chain Business Analyst Routine Comment: Discharge provider: Domenica Rodriguez MD Summary Hospital Course Date Patient Seen: 02/25/23 Time Patient Seen: 07:30 Diagnoses: 40-,2/7 weeks gestation Spontaneous vaginal delivery Epidural analgesia Hospital Course: Patient is a 27-year-old 2 para 2 who presented on February 24, 2023 in active labor at 40-,2/7 weeks gestation. She had a spontaneous vaginal delivery over an intact vagina/perineum. She received an epidural for pain management. Baby's Apgars were 8 at 1 minute and 9 at 5 minutes. weight 8 lb 0.2 oz. Her course was unremarkable she was discharged home on February 25, 2023. Peripartum Data Delivery Method: Natural Vaginal Laceration Description: None Episiotomy description: None Procedures: Epidural analgesia Spontaneous vaginal delivery complications: none [place] 1: Gender: Female Disposition of : home Status at Discharge Cognitive/behavioral status at discharge: oriented Functional status at discharge: independent ambulation Overall status at discharge: patient is back to baseline Time Spent with Patient Time attestation: Total time spent providing and/or coordinating discharge services: Time spent: Less than 30 minutes Objective Labs 02/25/23 06:27 Exam Narrative Exam Narrative: Generally: Patient is sitting up in bed, holding , no acute distress Fundus: Firm at U -1 Extremities: 1+ edema, negative Homans Discharge Plan Discharge Plan Patient Disposition: Home Provider Discharge Comment: Call with fever, chills, or bleeding vaginally more than a pad in an hour Ibuprofen 600 mg every 6 hours as needed for cramping Tylenol 650 mg every 6 hours as needed Discharge orders & Medications Prescriptions: Continued sertraline 25 mg tablet 75 mg PO DAILY Qty: 90 12RF levothyroxine 112 mcg tablet 112 mcg PO DAILY Qty: 90 3RF prenat.vits,nadya,tbg-vydh-emeez tablet 1 tab PO DAILY Discontinued metronidazole 0.75 % (37.5mg/5 gram) gel 1 appful vaginal DAILY 7 Days Qty: 70 0RF Follow up/Referrals: Domenica Rodriguez MD [Physician] - (Your six week follow up appointment with Dr. Rodriguez is scheduled for April 11@ 2:45, check-in 2:30.) Diet/Activity/Treatments Diet: Regular Activity: Nothing in the vagina and till bleeding has stopped Skin/Wound/Dressing Care Report to your healthcare provider any signs of infection, such as:: chills, fever, night sweats and unusual drainage Visit Report/Discharge Packet Instructions: DI for Labor and Delivery, Vaginal Stand Alone Forms: Discharge: Care, Patient Portal/API, Stroke Signs & Symptoms Discharges patient from system. Discharge Date/Time: 02/25/23 12:00
== END 2023-02-25 12:00 | disposition home or self-care (01) | DRG 560 ==
PROVIDERS: Obstetrics & Gynecology; Admitting Provider Specialist; Referring Provider Specialist; Visit Provider Specialist
DX: O99.284 Endocrine, nutritional and metabolic diseases complicating childbirth (principal); O99.824 Streptococcus B carrier state complicating childbirth; Z3A.40 40 weeks gestation of pregnancy; Z37.0 Single live birth
CPT/HCPCS: 36415; 59050; 59409; 85014; 85018; 85025; 86850; 86900; 86901; G0379; J0290

== ENCOUNTER → 2023-04-14 14:48 | Outpatient (CLI) | payer OTHER, MEDICAID, SELFPAY ==
[2023-04-14 16:07] LABS: Free T4, Direct Thyroxine 0.99 ng/dL (0.78-2.19)
[2023-04-14 16:21] LABS: Thyroid Stimulating Hormone 1.62 uIU/mL (0.47-4.68)
== END ==
PROVIDERS: Referring Provider Obstetrics & Gynecology; Visit Provider Obstetrics & Gynecology
DX: O99.280 Endocrine, nutritional and metabolic diseases complicating pregnancy, unspecified trimester (principal); E03.9 Hypothyroidism, unspecified
CPT/HCPCS: 36415; 81025; 84439; 84443

== ENCOUNTER → 2023-04-28 14:56 | Outpatient (CLI) | payer OTHER, MEDICAID, SELFPAY ==
[2023-04-28 15:59] LABS: HCG Quantitative /Beta subunit < 2.4 mIU/mL
== END ==
PROVIDERS: Referring Provider Obstetrics & Gynecology; Visit Provider Obstetrics & Gynecology
DX: O20.9 Hemorrhage in early pregnancy, unspecified (principal)
CPT/HCPCS: 36415; 84702

== ENCOUNTER → 2023-08-16 14:32 | Outpatient (CLI) | payer OTHER, MEDICAID, SELFPAY ==
[2023-08-16 15:36] LABS: HCG Quantitative /Beta subunit < 2.4 mIU/mL
== END ==
PROVIDERS: Specialist; PCP Registered Nurse; Referring Provider Obstetrics & Gynecology; Visit Provider Obstetrics & Gynecology
DX: N91.2 Amenorrhea, unspecified (principal)
CPT/HCPCS: 36415; 84702

== ENCOUNTER → 2023-08-24 14:15 | Outpatient (CLI) | payer OTHER, MEDICAID, SELFPAY ==
[2023-08-24 15:58] LABS: HCG Quantitative /Beta subunit 205.9 mIU/mL
== END ==
PROVIDERS: PCP Registered Nurse; Referring Provider Obstetrics & Gynecology; Visit Provider Obstetrics & Gynecology
DX: N91.2 Amenorrhea, unspecified (principal)
CPT/HCPCS: 36415; 84702

== ENCOUNTER → 2023-08-26 12:55 | Outpatient (CLI) | payer OTHER, MEDICAID, SELFPAY ==
[2023-08-26 14:19] LABS: HCG Quantitative /Beta subunit 573.2 mIU/mL
== END ==
PROVIDERS: PCP Registered Nurse; Referring Provider Obstetrics & Gynecology; Visit Provider Obstetrics & Gynecology
DX: N91.2 Amenorrhea, unspecified (principal)
CPT/HCPCS: 36415; 84702

== ENCOUNTER → 2023-09-16 16:35 | Outpatient (CLI) | payer OTHER, MEDICAID, SELFPAY ==
[2023-09-16 20:57] LABS: Urine N gonorrhoeae NOT DETECTED
[2023-09-16 21:08] LABS: Urine Chlamydia NOT DETECTED
== END ==
PROVIDERS: PCP Registered Nurse; Visit Provider Obstetrics & Gynecology
DX: Z34.81 Encounter for supervision of other normal pregnancy, first trimester (principal); Z3A.08 8 weeks gestation of pregnancy
CPT/HCPCS: 87491; 87591

== ENCOUNTER → 2023-10-05 12:57 | Outpatient (CLI) | payer OTHER, MEDICAID, SELFPAY ==
[2023-10-05 13:05] LABS: Specimen Label NATERA
[2023-10-05 14:08] LABS: Add Manual Diff / Slide Review NO; Basophils Absolute Auto 0 /uL (0-100); Basophils Percent Auto 0.4 % (0-2); Eosinophils Absolute Auto 0 /uL (0-450); Eosinophils Percent Auto 0.3 % (2-4); Hematocrit 39.2 % (36-46); Hemoglobin 13.6 g/dL (12.0-16.0); Lymphocytes Absolute Auto 2200 /uL (1100-4500); Lymphocytes Percent Auto 27.8 % (25-40); Mean Corpuscular HGB Conc 34.6 % (30-36); Mean Corpuscular Hemoglobin 30.5 PG (26-34); Mean Corpuscular Volume 88.2 fL (80-100); Monocytes Absolute Auto 400 /uL (0-900); Monocytes Percent Auto 5.6 % (3-14); Neutrophils Absolute Auto 5300 /uL (1500-7000); Neutrophils Percent Auto 65.9 % (50-75); Platelet Count 252 X10^3/uL (150-400); Red Blood Cell Count 4.44 X10^6/uL (4.0-5.2); Red Cell Distribution Width 13.4 % (11.6-14.8)
[2023-10-05 14:58] LABS: Free T4, Direct Thyroxine 0.99 ng/dL (0.78-2.19)
[2023-10-05 15:12] LABS: Thyroid Stimulating Hormone 2.19 uIU/mL (0.47-4.68)
[2023-10-06 19:04] LABS: Hepatitis B Surface Antigen NEGATIVE s/c (NEGATIVE)
[2023-10-06 19:58] LABS: HIV 1 & 2 Ab/Ag 4th Gen Combo NEGATIVE (NEGATIVE); Hep C Virus Ab w/Reflex Quant NEGATIVE s/c (NEGATIVE)
[2023-10-07 03:36] LABS: RPR Screen Non Reactive (Non Reactive)
[2023-10-07 09:47] LABS: Varicella IgG Antibody 2142 index (Immune >165)
== END ==
PROVIDERS: PCP Registered Nurse; Referring Provider Obstetrics & Gynecology; Visit Provider Obstetrics & Gynecology
DX: Z34.80 Encounter for supervision of other normal pregnancy, unspecified trimester (principal)
CPT/HCPCS: 80055; 84439; 84443; 86787; 86803; 86850; 86900; 86901; 87086; 87389

== ENCOUNTER → 2023-11-16 13:09 | Outpatient (CLI) | payer OTHER, MEDICAID, SELFPAY ==
[2023-11-16 14:51] LABS: Thyroid Stimulating Hormone 2.49 uIU/mL (0.47-4.68)
[2023-11-18 20:08] LABS: AFP Value 31.6 ng/mL (.); Gest Age on Col Date 17.6 weeks (.); Insulin Dep Diabetes No (.); OSBR Risk 1IN 8371 (.); Results Report (.); Test Results *Screen Negative* (.)
== END ==
LOC: LAB 13:10
PROVIDERS: Specialist; PCP Registered Nurse; Referring Provider Obstetrics & Gynecology; Visit Provider Obstetrics & Gynecology
DX: Z34.82 Encounter for supervision of other normal pregnancy, second trimester (principal); Z3A.16 16 weeks gestation of pregnancy; E03.9 Hypothyroidism, unspecified
CPT/HCPCS: 36415; 82105; 84439; 84443

== ENCOUNTER → 2023-12-16 14:17 | Outpatient (CLI) | payer OTHER, MEDICAID, SELFPAY ==
--- NOTE | 2023-12-16 14:18 | DI.US.S_ITS ---
PROCEDURE: US OB >= 14 WEEKS FETUS INDICATIONS: 20 Week Anatomy Scan OUTSIDE/PRIOR DATING DATA: Last menstrual period (LMP): 07/16/2023 LMP-based estimated date of delivery (WOODROW): 04/21/2024 First dating scan (date and location): 09/16/2023 Estimated date of delivery (WOODROW) from first dating scan: 05/02/2024 The calculations are made using the ultrasound WOODROW of 05/02/2024. TECHNIQUE: Real-time scanning was performed of the fetus, with image documentation and biometric measurements. Endovaginal scanning: Not performed. COMPARISON: [facility], US, OB >= 14 WEEKS FETUS, 12/09/2023, 14:37. FINDINGS: General: A single living intrauterine gestation is present. Presentation: Vertex Placenta: Placental position is anterior, without previa. Amniotic fluid index: 17.9 cm, normal range is 5-24 cm. Single deepest vertical pocket is 5.2 cm. heart rate: 137 beats per minute. Maternal cervical canal: 5.2 cm long. Normal lower limit is 2.5 cm. biometrics: Biparietal diameter: 5.0 cm, 21 weeks 0 days Head circumference: 18.9 cm, 21 weeks 1 day Abdominal circumference: 17.4 cm, 22 weeks 2 days Femur length: 3.5 cm, 21 weeks 0 days Clinically estimated gestational age: 20 weeks 2 days Composite gestational age from present scan: 21 weeks 3 days Estimated weight and percentile: 440 g, 98th percentile Anatomic survey: Neuro: Ventricles are non-dilated at less than 10 mm. Cisterna magna is normal at 3-11 mm. Cerebellum is normal in size and morphology. Nuchal skin fold: Normal at less than 6 mm between 14-21 weeks gestational age. Face: Nose and lips, facial profile are normal. Spine: No evidence for spina bifida. Heart: Four-chamber view and ventricular outflow tracts are not well visualized. Diaphragm: Diaphragm is intact. Stomach: Left-sided stomach is present. Kidneys: No hydronephrosis. Normal is less than 5 mm in 2nd trimester, less than 7 mm in 3rd trimester. Cord: 3-vessel cord has orthotopic insertion. Bladder: Normal in size. Extremities: All 4 extremities identified. IMPRESSION: 1. Single live intrauterine . 2. Estimated weight is at the 98th percentile for gestational age based on the ultrasound WOODROW of 05/02/2024. 3. four-chamber heart and ventricular outflow tracts are suboptimally visualized due to positioning and patient body habitus. Recommend follow-up exam. 4. anatomic survey is otherwise within normal limits. Approved by: Ash Nath M.D. on 12/16/2023 at 20:49
== END ==
PROVIDERS: PCP Registered Nurse; Referring Provider Specialist; Visit Provider Specialist
DX: Z34.82 Encounter for supervision of other normal pregnancy, second trimester (principal); Z3A.21 21 weeks gestation of pregnancy
CPT/HCPCS: 76811

== ENCOUNTER → 2024-01-13 13:02 | Outpatient (CLI) | payer OTHER, MEDICAID, SELFPAY ==
--- NOTE | 2024-01-13 13:04 | DI.US.S_ITS ---
PROCEDURE: US OB FOLLOW UP INDICATIONS: heart and outflow tracts not visualized well on initial scan OUTSIDE/PRIOR DATING DATA: Last menstrual period (LMP): 07/16/2023. LMP-based estimated date of delivery (WOODROW): 04/21/2024. First dating scan (date and location): 09/16/2023. Estimated date of delivery (WOODROW) from first dating scan: 05/02/2020. The calculations are made using the WOODROW of 05/02/2024. TECHNIQUE: Real-time scanning was performed of the fetus, with image documentation and biometric measurements. Endovaginal scanning: Not performed COMPARISON: [facility], OB >= 14 WEEKS FETUS, 01/06/2024, 14:03. [facility] OB >= 14 WEEKS FETUS, 12/16/2023, 14:31. [facility] OB >= 14 WEEKS FETUS, 12/09/2023, 14:37. [facility] OB <= 14 WEEKS FETUS, 10/14/2023, 14:53. [facility], OB <= 14 WEEKS FETUS, 09/16/2023, 14:51. [facility] OB FOLLOW UP, 11/15/2022, 9:05. FINDINGS: General: A single living intrauterine gestation is present. Presentation: Transverse head to the right. Placenta: Placental position is anterior , without previa. Amniotic fluid index: 21.3 cm, normal range is 5-24 cm. Single deepest vertical pocket is 6.4 cm. heart rate: 144 beats per minute. Maternal cervical canal: 4.8 cm long. Normal lower limit is 2.5 cm. biometrics: Biparietal diameter: 25 weeks 1 day Head circumference: 24 weeks 6 days Abdominal circumference: 25 weeks 6 days Femur length: 25 weeks 0 day Clinically estimated gestational age: 24 weeks 2 days Composite gestational age from present scan: 25 weeks 2 days Estimated weight and percentile: 8 and rate 7 g; 88% for gestational age. Other: Normal appearance of four-chamber heart and ventricular outflow tracts. IMPRESSION: 1. A single living intrauterine gestation redemonstrated with appropriate interval growth. 2. The estimated weight is at the 88th percentile on today's exam. 3. Normal appearance of 4-chamber heart and ventricular outflow tracts. Delete select We strive to produce accurate, complete, and clear reports of imaging services. To assist us in improving patient care, this report was composed using standard report templates and voice recognition software. Therefore, it may contain abnormal punctuation, insertions and/or omissions. Occasional wrong-word or sound-alike substitutions may occur. Though we review the report and make efforts to correct it, we do recommend that the report be read carefully in proper context to recognize any text inaccuracies. Dictated by: Wendi Perez M.D. on 01/13/2024 at 16:21 Approved by: Wendi Perez M.D. on 01/13/2024 at 16:29
[2024-01-13 14:46] LABS: Hematocrit 37.3 % (36-46); Hemoglobin 12.9 g/dL (12.0-16.0)
[2024-01-13 15:06] LABS: GTT (PREG) 1 Hour PP 50gm Dose 94 mg/dL (76-139)
[2024-01-13 15:39] LABS: Free T4, Direct Thyroxine 0.82 ng/dL (0.78-2.19)
[2024-01-13 15:53] LABS: Thyroid Stimulating Hormone 1.65 uIU/mL (0.47-4.68)
== END ==
LOC: US 13:03
PROVIDERS: PCP Registered Nurse; Referring Provider Obstetrics & Gynecology; Visit Provider Obstetrics & Gynecology
DX: Z36.2 Encounter for other antenatal screening follow-up (principal); Z3A.25 25 weeks gestation of pregnancy
CPT/HCPCS: 76816; 82950; 84439; 84443; 85014; 85018

== ENCOUNTER → 2024-03-02 14:37 | Outpatient (CLI) | payer OTHER, MEDICAID, SELFPAY ==
[2024-03-02 15:57] LABS: Free T4, Direct Thyroxine 1.16 ng/dL (0.78-2.19)
[2024-03-02 16:11] LABS: Thyroid Stimulating Hormone 0.138 uIU/mL (0.47-4.68)
== END ==
PROVIDERS: PCP Registered Nurse; Referring Provider Obstetrics & Gynecology; Visit Provider Obstetrics & Gynecology
DX: Z34.80 Encounter for supervision of other normal pregnancy, unspecified trimester (principal); E03.9 Hypothyroidism, unspecified
CPT/HCPCS: 36415; 84439; 84443

== ENCOUNTER 2024-04-23 17:14 | Inpatient (IN) | payer OTHER, MEDICAID, SELFPAY ==
[2024-04-23] MEDS: LACTATED RINGERS 1,000 ML 100 ML IV ×3 (19:40→23:22)
[2024-04-23 19:52] LABS: Add Manual Diff / Slide Review NO; Basophils Absolute Auto 100 /uL (0-100); Basophils Percent Auto 0.7 % (0-2); Eosinophils Absolute Auto 0 /uL (0-450); Eosinophils Percent Auto 0.3 % (2-4); Hematocrit 39.7 % (36-46); Hemoglobin 13.5 g/dL (12.0-16.0); Lymphocytes Absolute Auto 2400 /uL (1100-4500); Lymphocytes Percent Auto 20.6 % (25-40); Mean Corpuscular HGB Conc 34.1 % (30-36); Mean Corpuscular Hemoglobin 31.6 PG (26-34); Mean Corpuscular Volume 92.8 fL (80-100); Monocytes Absolute Auto 600 /uL (0-900); Monocytes Percent Auto 5.5 % (3-14); Neutrophils Absolute Auto 8400 /uL (1500-7000); Neutrophils Percent Auto 72.9 % (50-75); Platelet Count 260 X10^3/uL (150-400); Red Blood Cell Count 4.28 X10^6/uL (4.0-5.2); Red Cell Distribution Width 13.9 % (11.6-14.8); White Blood Cell Count 11.6 X10^3/uL (4.5-11.0)
--- NOTE | 2024-04-23 20:41 | P.PCN_ITS ---
Regional Block Pre-procedure Procedure: Continuous Lumbar Epidural for L&D Attending OB provider: Domenica Rodriguez PMH/ROS narrative: , 38 5/7 weeks, spontaneous labor, membranes intact, dilated to 5cm requesting epidural ROS positive for GERD, thyroid disease, anxiety/depression, hx JASMIN (MJ/crack- last ). Hx vaginal deliveries x 2 with epidurals. Morbid obesity, BMI 56. Airway exam=Mall I, good dentition, good neck ROM. PSH/Anesthesia history narrative: Epidurals with previous two deliveries ASA Class: III Labs: Hct 39.7 % (36-46) 04/23/24 19:35 Plt Count 260 X10^3/uL (150-400) 04/23/24 19:35 Medications: Current Medications Generic Name Dose Route Start Last Admin Trade Name Freq PRN Reason Stop Dose Admin Calcium Carbonate 1,000 mg 04/23/24 19:40 Calcium Carbonate 500 Mg Tab PO Q2HR PRN Dyspepsia Carboprost Tromethamine 250 mcg 04/23/24 19:40 Carboprost 250 Mcg/Ml Ampul IM Q90M PRN Bleeding Fentanyl 50 mcg 04/23/24 19:40 Fentanyl 100 Mcg/2 Ml Inj IV Q1H PRN Pain, Moderate (4-6) Lactated Ringer's 1,000 mls @ 100 mls/hr 04/23/24 19:45 04/23/24 20:38 Lactated Ringers IV 04/24/24 05:44 100 mls/hr CONT BERNARD Administration Oxytocin/Lactated Ringer's 30 unit in 500 mls @ 200 mls/hr 04/23/24 19:40 Oxytocin Premix IV CONT PRN Bleeding Protocol Tranexamic Acid 1,000 mg/ 100 mls @ 600 mls/hr 04/23/24 19:40 Sodium Chloride IV NOW PRN Bleeding Oxytocin/Lactated Ringer's 30 unit in 500 mls @ 2 mls/hr 04/23/24 19:45 Oxytocin Premix IV TITRATE BERNARD Protocol 2 MILLIUNIT/MIN Lidocaine HCl 20 ml 04/23/24 19:40 Lidocaine 1% 20 Ml INJ INTRA-OP PRN Post Delivery Methylergonovine Maleate 0.2 mg 04/23/24 19:40 Methylergonovine 0.2 Mg Tablet PO Q6HR PRN Heavy Bleeding Methylergonovine Maleate 0.2 mg 04/23/24 19:40 Methylergonovine 0.2 Mg/Ml Vial IM NOW PRN Bleeding Mineral Oil 30 ml 04/23/24 19:40 Mineral Oil 30 Ml Udc TOP PRN PRN Version Misoprostol 800 mcg 04/23/24 19:40 Misoprostol 200 Mcg Tablet DC NOW PRN Bleeding Misoprostol 400 mcg 04/23/24 19:40 Misoprostol 200 Mcg Tablet SL NOW PRN Bleeding Naloxone HCl 0.2 mg 04/23/24 19:40 Naloxone 0.4 Mg/Ml Vial IV Q2MIN PRN Opiate Reversal Ondansetron HCl 4 mg 04/23/24 19:40 Ondansetron 4 Mg/2 Ml Inj IV Q4HR PRN Nausea And Vomiting Oxytocin 10 unit 04/23/24 19:40 Oxytocin 10 Unit/Ml Vial IM NOW PRN Bleeding Allergies: Allergies Allergy/AdvReac Type Severity Reaction Status Date / Time No Known Drug Allergies Allergy Verified 04/23/24 16:25 Procedure Insertion date: 04/23/24 Insertion time: 20:00 Prep/Local: 1% lidocaine (Chlorhexidine skin prep, sterile drape) Interspace: L4-5 Patient position: sitting Needle: 17 gauge Tuohy Loss of resistance with: saline REY at (cm): 9 Catheter placed at SKIN (cm): 18 Catheter in SPACE (cm): 9 Sensory level: T10 Insertion: No CSF, No Blood, No Paresthesia with insertion, No Paresthesia with injection and No Test dose reaction Initial Medications TEST DOSE time: 20:11 BOLUS DOSE time: 20:35 BOLUS DOSE (mL): 0 Infusion Initial rate (mL/hr): 6 Post-procedure Anesthesia date START: 04/23/24 Anesthesia time START: 20:00 Anesthesia date END: 04/24/24 Anesthesia time END: 01:36 Post-procedure Anesthesia Assessment: Yes CV function: HR/BP stable, Yes Resp function: RR/sat/airway adequate, Yes Post-op hydration adequate, Yes Pain control adequate, Yes Nausea & vomiting absent, Yes Temperature > 36 C, Yes Mental status appropriate and Yes Anesthesia complications
[2024-04-23 20:56] VITALS: BP 122/68
--- NOTE | 2024-04-23 21:19 | PM.OBHP.IH.1 ---
OB HPI Date/Time Date of admission: 04/23/24 Date Patient Seen: 04/23/24 Time Patient Seen: 21:19 History of Present Condition Chief complaint: OBS [place]ODROW Calculator Estimated Delivery Date Method Current WG Current Estimate 05/02/24 Ultrasound #1 38w 5d Other Estimates 04/21/24 LMP (Certain) 40w 2d Estimated Gestational Age (weeks): 38+5 : 3 Para: 2 care: good care, initiated at week # and pounds weight gain (9) Dating criteria OB: LMP confirmed by 1st trimester US Ultrasounds: normal 1st trimester US and normal mid trimester US Obstetrical complications: none Medical complications OB: other (obesity) Preadmission Labs Last OB Lab Results: Blood Type B Positive 04/23/24 19:35 Antibody Screen Negative 04/23/24 19:35 Hct 39.7 % (36-46) 04/23/24 19:35 Hgb 13.5 g/dL (12.0-16.0) 04/23/24 19:35 Hep Bs Antigen Negative s/c (NEGATIVE) 10/05/23 13:07 Hepatitis C Antibody Negative s/c (NEGATIVE) 10/05/23 13:07 Rubella Antibody 192.0 IU/mL (>15) 10/05/23 13:07 VZV IgG Antibody 2142 index (Immune >165) 10/05/23 13:07 Glucose 1 Hr 50 gm 94 mg/dL (76-139) 01/13/24 14:24 Group B Strep (PCR) Pos for grp b strep H 02/03/23 15:23 -: Chlamydia screen: negative, Gonorrhea screen: negative and Urine: negative -: PAP smear: Normal Genetic Screens: Cell-free DNA: Normal (normal male) and Alpha-fetoprotein: Normal External Labs -: Urine: negative Prior (ies) Past Pregnancies Del. Date GA/Weeks Labor Lgth Wt Sex Route Outcome Anesthesia Place Delv Breastfeed Preg Comp Name 02/20/19 40 8 6 lb 13 oz Male vaginal epidural IH 3 months none [place] 02/24/23 40.2 4 8 lb 2 oz Female vaginal live - full term epidural IH 2 months (mostly just pumped) none [place] Evaluation Evaluation Baseline heart rate: 130 Variability: Moderate (11-25) monitor accelerations: Present Monitor Decelerations: Absent Contraction Frequency (minutes): 3 Uterine Contraction Intensity: Moderate Status: Category l Dilation (cm): 6 Effacement (%): 80 station: -1 Position of cervix: mid Consistency: soft PFSH Medical History (Updated 04/23/24 @ 00:44 by Domenica Rodriguez MD) Itching Hypothyroidism affecting Migraine without aura Anxiety Depression Surgical History (Updated 06/23/22 @ 08:33 by Amy Aggarwal RN) [place] teeth extracted Family History (Updated 06/23/22 @ 08:35 by Amy Aggarwal RN) Father Hyperlipidemia Hypertension Mother Hypothyroidism Sister Ulcerative colitis Grandfather Diabetes mellitus Social History marital status: number of children: 2 household members: spouse, family (mother) and children lives independently: Yes caregiver/support person: Yes housing: house pets and animals: Yes (dog & cat) education level: high school occupational status: unemployed current occupational exposures/hazards: No special joe needs: No travel history: recent (domestic only) seatbelt use: always water heater temp set < 120 deg: Yes working smoke detector in home: Yes fire extinguisher in home: No carbon monox detector in home: Yes firearms in home: Yes firearms unloaded and locked: Yes do you feel safe at home: Yes Smoking Status: Former smoker (Quit vaping) Tobacco: How many years used: 1 second hand exposure: Yes (s/o smokes but not around pt) alcohol intake: former (rarely when not ) substance use type: marijuana (instructed not to use while /) and crack/cocaine (reports last use 2020/2021) during the past year weight has: increased > 10 lbs (has not lost weight since last delivery ~6 months ago) well-balanced diet: about half the time daily servings fruits/ve-4 caffeine: Yes (1 coffee/day) Type(s) of exercise: none Meds Home Medications and Allergies Home Medications Medication Instructions Recorded Confirmed Type prenat.vits,nadya,gui-vwgk-zrssf 1 tab PO DAILY 08/23/18 04/23/24 History sertraline 25 mg tablet 75 mg (3 x 25 mg) PO DAILY #90 tabs 11/22/23 04/23/24 Rx breast pump #1 ea 03/16/24 04/23/24 Rx levothyroxine 175 mcg tablet 175 mcg PO DAILY #30 tabs 04/16/24 04/23/24 Rx Allergies Allergy/AdvReac Type Severity Reaction Status Date / Time No Known Drug Allergies Allergy Verified 04/23/24 16:25 OB Exam Narrative Exam Narrative: Generally: Patient comfortable with epidural Fundal height: 43 cm Estimated weight: 8 lb Extremities: Trace edema Objective Labs 04/23/24 19:35 Labs: Laboratory Results - last 24 hr 04/23/24 19:35 WBC 11.6 H RBC 4.28 Hgb 13.5 Hct 39.7 MCV 92.8 MCH 31.6 MCHC 34.1 RDW 13.9 Plt Count 260 Neut % (Auto) 72.9 Lymph % (Auto) 20.6 L [place] % (Auto) 5.5 Eos % (Auto) 0.3 L Baso % (Auto) 0.7 Neut # (Auto) 8400 H Lymph # (Auto) 2400 [place] # (Auto) 600 Eos # (Auto) 0 Baso # (Auto) 100 Blood Type B Positive Antibody Screen Negative Assessment and Plan Assessment and Plan Assessment and Plan narrative: Assessment: 28-year-old 3 para 2 at 38-,5/7 weeks gestation in active labor GBS negative Comfortable with an epidural Plan: AROM with copious clear amniotic fluid FSE placed Pitocin as needed Expected management to spontaneous vaginal delivery Time-Based Coding :: [TOTAL MINUTES] spent with patient and on the chart (including review of chart, obtaining history, exam, reviewing outside data, placing orders, documenting exam and treatment plan, and counseling patient) on [DATE].
[2024-04-23] MEDS: OXYTOCIN PREMIX 30 UNIT/500 ML PLAST..BAG IV (22:05)
--- NOTE | 2024-04-24 00:31 | PM.OBPNLAB ---
Date/Time Date Patient Seen: 04/24/24 Time Patient Seen: 00:31 Pain Control Pain control: tolerating well and epidural (Feeling some rectal pressure) Pelvic Exam Dilation (cm): 7 Effacement (%): 85 station: +1 (With a contraction) Amniotic membrane status: Ruptured (Still leaking clear fluid) Contractions Contractions on admission: irregular Monitor mode: External Pitocin rate (mU/min): 6 Contraction frequency (min): 3 Contraction duration (min): 1 Contraction pattern: Regular Contraction intensity: Strong/Firm Status status: Category l Heart Rate Baseline: 130 Monitor Accelerations: Present Monitor Decelerations: Early Monitor Variability: Moderate Assessment and Plan Assessment: active labor Plan: continuous present management Comments: Expected management to spontaneous vaginal delivery
[2024-04-24] MEDS: OXYTOCIN PREMIX 30 UNIT/500 ML PLAST..BAG 200 UNIT IV (01:29)
--- NOTE | 2024-04-24 01:36 | PM.OBPRVD ---
Events: Labor Augmentation Labor & Delivery Delivery date: 04/24/24 Cervical ripening method: none Induction method: none Delivery augmentation: rupture of membranes and pitocin Delivery monitor: external FHT, external uterine and internal FHT Route of delivery: Episiotomy description: None L&D Laceration Description: None Quantitative Blood Loss: 410 Anesthesia Type: Epidural Complications: None Narrative: Patient complete and pushed for 13 minutes. A 0123, a live male delivered spontaneously in the [place] presentation an intact perineum. No nuchal cord. The remainder of the body delivered without difficulty and was placed on mom's abdomen. The cord was double clamped and cut after it stopped pulsing. Cord bloods were obtained. Pitocin was given in the IV fluids. The placenta delivered intact with a three-vessel cord at 1:29 a.m.. The fundus was massaged to firm. No lacerations noted. QBL 410 cc. Apgars 7 at 1 minute, 7 at 5 minutes, and 8 at 10 minutes. weight 7 lb 12.6 oz. Epidural analgesia. Mom and stable to recovery. [place] Baby 1: gender: Male Presentation: vertex Position: Left Occiput Anterior Placenta delivery description: Spontaneous Cord Vessel Description: 3 Vessels score (1 min): 7 score (5 min): 7 score (10 min): 8 weight: 7 lb 12.5 oz Plan for aftercare: Routine care
[2024-04-24] MEDS: LANOLIN OINT 7 GM 1 APPLIC TOP (04:27)
[2024-04-24] MEDS: IBUPROFEN 600 MG TABLET PO ×2 (04:28→17:44)
[2024-04-24] MEDS: WITCH HAZEL/GLYCERIN PADS 1 EACH TOP (04:29)
[2024-04-24] MEDS: DERMOPLAST SPRAY 20% 60 ML 1 SPRAY TOP (04:29)
[2024-04-24] MEDS: PRENATAL VIT,CALC/IRON/FOLIC 1 TABLET 1 TAB PO (08:43)
[2024-04-24] MEDS: DOCUSATE 100 MG CAPSULE PO (08:43)
[2024-04-24] MEDS: SERTRALINE 50 MG TABLET 75 MG PO (08:43)
[2024-04-24] MEDS: LEVOTHYROXINE 100 MCG TABLET PO (08:44)
[2024-04-24] MEDS: ACETAMINOPHEN 325 MG TABLET 650 MG PO (12:10)
[2024-04-24 18:19] VITALS: BP 108/69; PULSE 76; RESP 14; TEMP 36.4
--- NOTE | 2024-04-28 22:11 | PM.OBDS.1 ---
Discharge Providers Provider Date of admission: 04/23/24 17:14 Discharge Date: 04/24/24 Primary care physician: NILS Henry Consults: 04/23/24 19:41 Consult to Anesthesiology Urgent Comment: Consulting Provider: Anesthesiologist Reason for consultation: Epidural Discharge provider: Domenica Rodriguez MD Summary Hospital Course Date Patient Seen: 04/24/24 Time Patient Seen: 17:30 Diagnoses: 38-5/7 weeks gestation Pitocin augmentation of labor Artificial rupture of membranes Epidural analgesia Spontaneous vaginal delivery Hospital Course: Patient is a 28-year-old 3 para 3 who presented on April 23, 2024 in early/active labor. She received an epidural for pain management. Artificial rupture of membranes with copious clear amniotic fluid. Pitocin augmentation was given. She had a spontaneous vaginal delivery without complication. Her course was unremarkable and she was discharged home on April 24, 2024. Her lochia was small. was going well. Peripartum Data Laceration Description: None Episiotomy description: None Procedures: Epidural analgesia Artificial rupture of membranes Pitocin augmentation of labor Spontaneous vaginal delivery complications: none [place] 1: Gender: Male Disposition of : home Status at Discharge Cognitive/behavioral status at discharge: oriented Functional status at discharge: independent ambulation Overall status at discharge: patient is progressing back to baseline Time Spent with Patient Time attestation: Total time spent providing and/or coordinating discharge services: Time spent: Less than 30 minutes Objective Labs 04/23/24 19:35 Exam Narrative Exam Narrative: Generally: Patient walking around in room, no acute distress Fundus: Firm at U Extremities: 1+ edema, negative [place] Discharge Plan Discharge Plan Patient Disposition: Home Provider Discharge Comment: Call with fever, chills or bleeding vaginally more than a pad in an hour Ibuprofen 600 mg every 6 hours as needed for cramping Tylenol 650 mg every 6 hours as needed vitamins Push oral fluids Discharge orders & Medications Prescriptions: Continued sertraline 25 mg tablet 75 mg PO DAILY Qty: 90 6RF levothyroxine 175 mcg tablet 175 mcg PO DAILY Qty: 30 3RF prenat.vits,nadya,gve-magg-mwqbv tablet 1 tab PO DAILY No Action (DME) breast pump Device See Rx Instructions .ROUTE .MEDSUPPLY Qty: 1 0RF Rx Instructions: As directed Follow up/Referrals: Domenica Rodriguez MD [Physician] - (Patient has 6 week visit scheduled in [place]) Diet/Activity/Treatments Diet: Regular Activity: Nothing in the vagina for 6 weeks Skin/Wound/Dressing Care Report to your healthcare provider any signs of infection, such as:: chills, fever, increased pain and unusual drainage Visit Report/Discharge Packet Instructions: DI for Labor and Delivery, Vaginal Stand Alone Forms: Discharge: Care, Patient Portal/API, Stroke Signs & Symptoms Discharge Data Primary Care Provider: Elizabeth Walker
== END 2024-04-24 20:58 | disposition home or self-care (01) | DRG 560 ==
PROVIDERS: Family Medicine; Admitting Provider Obstetrics & Gynecology; PCP Registered Nurse; Referring Provider Obstetrics & Gynecology; Visit Provider Obstetrics & Gynecology
DX: O99.214 Obesity complicating childbirth (principal); O99.824 Streptococcus B carrier state complicating childbirth; Z3A.38 38 weeks gestation of pregnancy; Z37.0 Single live birth
CPT/HCPCS: 36415; 59050; 59409; 84112; 85025; 86850; 86900; 86901; G0379; J2590